=== PATIENT | male | born 1985 | race Two or more races ===

== ENCOUNTER 2024-10-29 20:41 | Emergency (ER) | payer SELFPAY ==
[2024-10-29 21:05] LABS: #Basophils 0.2 thou/uL (0.0-0.2); #Eosinophils 0.1 thou/uL (0.0-0.7); #Lymphocytes 4.8 thou/uL (1.20-3.40); #Monocytes 0.9 thou/uL (0.11-0.59); #Neutrophils 8.1 thou/uL (1.40-6.50); %Basophils 1.1 % (0.0-1.0); %Eosinophils 0.9 % (0.0-10.0); %Lymphocytes 34.3 % (21.0-51.0); %Monocytes 6.4 % (0.0-10.0); %Neutrophils 57.3 % (42.0-75.0); Hematocrit 41.2 % (42.0-52.0); Hemoglobin 13.8 g/dL (14.0-18.0); Mean Corpuscular HGB CONC 33.5 g/dL (32.0-36.0); Mean Corpuscular Hemoglobin 28.7 pg (27.0-31.0); Mean Corpuscular Volume 85.9 fl (78.0-98.0); Mean Platelet Volume 7.3 fL (7.4-10.4); Platelet Count 366 10x3/uL (130-400); RBC Distribution Width 11.9 % (11.5-14.5); White Blood Cell (WBC) Count 14.1 10x3/uL (4.8-10.8)
[2024-10-29 21:22] LABS: ALT (SGPT) 26 U/L (8-55); AST (SGOT) 22 U/L (5-34); Acetaminophen Less than 10 mcg/mL (Less than 10); Albumin 4.6 g/dL (3.5-5.0); Alcohol Less than 10.0 mg/dL (Less than 10); Alkaline Phosphatase 52 U/L (40-110); Anion Gap 20 mmol/L (10-20); BUN (Urea Nitrogen) 16 mg/dL (8.9-20.6); Bilirubin, Total 0.4 mg/dL (0.2-1.2); Calc. Creatinine Clearance 0 mL/min (70-130); Calcium 9.4 mg/dL (7.8-10.44); Carbon Dioxide 20 mmol/L (22-29); Chloride 103 mmol/L (98-107); Estimated GFR 63; Globulin 3.3 g/dL (2.4-3.5); Glucose 182 mg/dL (70-105); Lipase 24 U/L (8-78); Potassium 2.8 mmol/L (3.5-5.1); Protein, Total 7.9 g/dL (6.0-8.3); Salicylate Less than 8.0 mg/dL (Less than 8.0); Sodium 140 mmol/L (136-145)
[2024-10-29 21:23] LABS: Troponin I Less than 0.010 ng/mL (< 0.028)
[2024-10-29] MEDS ORDERED: Potassium Chloride 20 MEQ TAB ONE (21:55)
[2024-10-29 22:03] LABS: Magnesium 1.9 mg/dL (1.6-2.6)
[2024-10-29 22:56] LABS: Bilirubin Negative (Negative); Blood, Urine Trace (Negative); Clarity Clear (Clear); Glucose, Urine (Dipstick) Negative (Negative); Ketone, Urine Negative (Negative); Leukocyte Negative (Negative); Nitrite Negative (Negative); Protein, Urine (Dipstick) Negative (Neg-Trace); Urobilinogen 0.2 mg/dL (Less than 2); pH, Urine 5.5 (5.0-9.0)
[2024-10-29 22:57] LABS: Bacteria/HPF Rare-Few HPF (None Seen); CAUTI Indications for Culture Alt mental st,lethar; RBC/HPF 0-3 HPF (0-3); Squamous Epithelial 0-3 HPF (0-3); Urine Culture Reflex No No; WBC/HPF 0-3 HPF (0-3)
== END 2024-10-30 00:37 | disposition left against medical advice (07) ==
LOC: MADERS 20:41
DX: E87.6 Hypokalemia (principal); R53.83 Other fatigue; R00.0 Tachycardia, unspecified
CPT/HCPCS: 80053; 80307; 81001; 83690; 83735; 84443; 84484; 85025; 93005; 96360